=== PATIENT | male | born 1960 | race Caucasian/White ===

== ENCOUNTER 2023-12-09 08:55 | Outpatient (CLI) | payer BC, SELFPAY ==
--- NOTE | 2023-12-09 09:44 | W.ANESCHARGE ---
Anesthesia Charges Start Date/Time Anesthesia Start Date: 12/09/23 Anesthesia Start Time: 09:43 Stop Date/Time Anesthesia Stop Date: 12/09/23 Anesthesia Stop Time: 10:06
--- NOTE | 2023-12-09 10:10 | W.ANESCHARGE ---
Anesthesia Charges Start Date/Time Anesthesia Start Date: 12/09/23 Anesthesia Start Time: 09:43 Stop Date/Time Anesthesia Stop Date: 12/09/23 Anesthesia Stop Time: 10:06
== END 2023-12-09 08:56 | disposition home or self-care (01) ==
PROVIDERS: PCP Physician Assistant Medical; Visit Provider Surgery
DX: Z86.010 Personal history of colon polyps (principal)
CPT/HCPCS: 00811; 00812; 45378; J2704